=== PATIENT | female | born 1955 | race American Indian/Alaskan Native ===

== ENCOUNTER 2017-04-05 03:30 | Emergency (ER) | payer MEDICARE ==
[2017-04-05 03:31] VITALS: BMI 28.3
[2017-04-05] MEDS ORDERED: HYDROmorphone 0.5 mg/0.5 ml ISec SC STA ×2 (03:53→05:10)
--- NOTE | 2017-04-05 04:03 | ED PDOC ---
Arrival/HPI - General Chief Complaint: Back Pain Time Seen by Provider: 04/05/17 03:41 Historian: Patient - History of Present Illness Narrative History of Present Illness (Text): 04/05/17 03:58 A 62 year old female, whose past medical history includes chronic vertebral disk disease, knee surgery , chronic pain syndrome, presents to [facility] emergency department with a complaint of lower back pain. The patient states pain radiates down left leg. Patient states has a history of sciatica pain. Patient is on chronic pain medication at home (Oxycodone and Morphine). She is followed by a pain specialist. Patient states that she recently had her dosage decreased which she feel contributes to her worsening pain. The patient denies any history of trauma, leg weakness, changes in bowel/urinary habits, patient ambulates without difficulty. PMD: Dr. Salgado Time/Duration: Other (Today) Symptom Onset: Sudden Symptom Course: Unchanged Activities at Onset: Rest, Light Context: Home Past Medical History - Provider Review Nursing Documentation Reviewed: Yes - Past History Past History: Non-Contributing - Tetanus Immunization Tetanus Immunization: Unknown - Reproductive Menopause: Yes - Cardiac Hx Hypertension: Yes - Pulmonary Hx Respiratory Disorders: No - Neurological Hx Neurological Disorder: No - HEENT Hx HEENT Disorder: No - Renal Hx Renal Disorder: No - Endocrine/Metabolic Hx Diabetes Mellitus Type 2: Yes - Hematological/Oncological Hx Blood Disorders: No - Integumentary Hx Dermatological Disorder: No - Musculoskeletal/Rheumatological Hx Back Pain: Yes Hx Falls: No 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 - Gastrointestinal Hx Diverticulitis: Yes - Genitourinary/Gynecological Hx Genitourinary Disorders: No - Psychiatric Hx Depression: Yes Hx Emotional Abuse: No Hx Physical Abuse: No Hx Substance Use: No - Surgical History Hx Cholecystectomy: Yes Hx Joint Replacement: Yes (l knee/back) Hx Orthopedic Surgery: Yes Other/Comment: 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/alisa carpal tunnel - Anesthesia Hx Anesthesia: Yes Hx Anesthesia Reactions: No Hx Malignant Hyperthermia: No - Suicidal Assessment Feels Threatened In Home Enviroment: No Family/Social History - Physician Review Nursing Documentation Reviewed: Yes Family/Social History: No Known Family HX Smoking Status: Current Some Days Smoker Hx Alcohol Use: No Hx Substance Use: No Hx Substance Use Treatment: No Allergies/Home Meds Allergies/Adverse Reactions: Allergies erythromycin lactobionate [From Erythrocin] Allergy (Verified 04/05/17 03:49) RASH Penicillins Allergy (Verified 04/05/17 03:49) RASH Home Medications: Home Meds Medication Instructions Recorded Confirmed Cyclobenzaprine HCl [Flexeril] 10 mg PO BID 04/01/14 11/07/14 Ezetimibe [Zetia] 10 mg PO DAILY 04/01/14 11/07/14 Hydrochlorothiazide/Valsarta 1 tab PO DAILY 04/01/14 11/07/14 [Diovan Hct 25 mg-320 mg] Oxycodone HCl/Acetaminophen 30 mg PO Q4 04/01/14 11/07/14 [Roxicet 325 mg-5 mg] Potassium Chloride [K-Dur 20] 20 meq PO DAILY 04/01/14 11/07/14 Zolpidem Tartrate [Ambien] 10 mg PO HS 04/01/14 11/07/14 diltiaZEM [Cardizem] 360 mg PO DAILY 04/01/14 11/07/14 Morphine [MS Contin] 60 mg PO QID PRN 11/07/14 11/07/14 Review of Systems - Physician Review All systems were reviewed & negative as marked: Yes - Review of Systems Gastrointestinal: absent: Stool Changes Genitourinary Female: absent: Urine Output Changes Musculoskeletal: Back Pain (Lower back pain), Other (No leg weakness. ) Physical Exam Vital Signs Reviewed: Yes Vital Signs Temp Pulse Resp BP Pulse Ox 04/05/17 03:50 98.0 F 100 H 18 144/90 98 Temperature: Afebrile Blood Pressure: Normal Pulse: Tachycardic Respiratory Rate: Normal Appearance: Positive for: Well-Appearing, Non-Toxic, Comfortable Pain Distress: None Mental Status: Positive for: Alert and Oriented X 3 - Systems Exam Head: Present: Atraumatic, Normocephalic Pupils: Present: PERRL Extroacular Muscles: Present: EOMI Conjunctiva: Present: Normal Mouth: Present: Moist Mucous Membranes Neck: Present: Normal Range of Motion Respiratory/Chest: Present: Clear to Auscultation, Good Air Exchange. No: Respiratory Distress, Accessory Muscle Use Cardiovascular: Present: Regular Rate and Rhythm, Normal S1, S2. No: Murmurs Abdomen: Present: Normal Bowel Sounds. No: Tenderness, Distention, Peritoneal Signs Back: Present: Normal Inspection, Pain with Leg Raise (Slight discomfort with left leg raise. ). No: Midline Tenderness, Paraspinal Tenderness Upper Extremity: Present: Normal Inspection. No: Cyanosis, Edema Lower Extremity: Present: Normal Inspection, Neurovascularly Intact. No: Edema Neurological: Present: GCS=15, CN II-XII Intact, Speech Normal, Motor Func Grossly Intact, Normal Sensory Function Skin: Present: Warm, Dry, Normal Color. No: Rashes Psychiatric: Present: Alert, Oriented x 3, Normal Insight, Normal Concentration Medical Decision Making ED Course and Treatment: 04/05/17 04:05 Impression: A 62 year old female presents to the emergency department complaining of lower back pain. Plan: -- Dilaudid -- Reassess and disposition Progress Notes: - Medication Orders Current Medication Orders: Discontinued Medications Hydromorphone HCl (Dilaudid) 2 mg SC STAT STA Stop: 04/05/17 03:54 Last Admin: 04/05/17 04:11 Dose: 2 mg MAR Pain Assessment Document 04/05/17 04:11 IT (Rec: 04/05/17 04:12 IT [id number]) Pain Reassessment Is this a pain reassessment? No Sleep Is patient sleeping during reassessment? No Presence of Pain Presence of Pain Yes Pain Scale Used Pain Scale Used Numeric Location Left, Right or Bilateral Bilateral Upper or Lower Lower Pain Location Body Site Back Subcutaneous Administrations Document 04/05/17 04:11 IT (Rec: 04/05/17 04:12 IT [id number]) Injection Site MAR Injection Site Left Arm Charges for Administration # of Subcutaneous Administrations 1 Hydromorphone HCl (Dilaudid) 2 mg SC STAT STA Stop: 04/05/17 05:11 Last Admin: 04/05/17 05:20 Dose: 2 mg MAR Pain Assessment Document 04/05/17 05:20 IT (Rec: 04/05/17 05:20 IT [id number]) Pain Reassessment Is this a pain reassessment? No Sleep Is patient sleeping during reassessment? No Presence of Pain Presence of Pain Yes Subcutaneous Administrations Document 04/05/17 05:20 IT (Rec: 04/05/17 05:20 IT [id number]) Charges for Administration # of Subcutaneous Administrations 1 - Scribe Statement The provider has reviewed the documentation as recorded by the Scribe Jenny Law Provider Scribe Attestation: All medical record entries made by the Scribe were at my direction and personally dictated by me. I have reviewed the chart and agree that the record accurately reflects my personal performance of the history, physical exam, medical decision making, and the department course for this patient. I have also personally directed, reviewed, and agree with the discharge instructions and disposition. Disposition/Present on Arrival - Present on Arrival Any Indicators Present on Arrival: No History of DVT/PE: No History of Uncontrolled Diabetes: No Urinary Catheter: No History of Decub. Ulcer: No History Surgical Site Infection Following: None - Disposition Have Diagnosis and Disposition been Completed?: Yes Diagnosis: Sciatica, Back pain Disposition: HOME/ ROUTINE Disposition Time: 05:34 Patient Plan: Discharge Condition: GOOD Discharge Instructions (ExitCare): Sciatica (DC), Low Back Pain in Adults Additional Instructions: Continue your current meds/follow up with your doctor this week Forms: [employer] (Bots[place]an)
[2017-04-05 05:44] VITALS: BP 158/96; PULSE 93; RESP 17; TEMP 98.2; O2SAT 100
== END 2017-04-05 05:44 | disposition home or self-care (01) ==
LOC: ED 03:30
DX: M54.40 Lumbago with sciatica, unspecified side (principal)
CPT/HCPCS: 96372; 99283; J1170

== ENCOUNTER 2017-04-12 10:37 | Inpatient (IN) | payer MEDICARE ==
[2017-04-12 11:00] VITALS: BMI 25.6
[2017-04-12] MEDS ORDERED: Sodium Chloride 0.9% 1,000 ML IV STA ×3 (11:28→15:09)
[2017-04-12] MEDS ORDERED: Morphine 4 mg/ml ISec IVP STA (11:32)
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
[2017-04-12 12:09] LABS: BASO # 0.01 K/mm3 (0.0-2.0); GRAN # 18.47 (1.4-6.5); GRAN % 85.9 % (50.0-68.0); HEMOGLOBIN 14.7 g/dL (12.0-16.0); LYMPH # 2.1 (1.2-3.4); LYMPH % 9.9 % (22.0-35.0); MEAN CELL VOLUME 83.8 fl (80.0-105.0); MEAN CORPUSCULAR HEMOGLOBIN 28.3 pg (25.0-35.0); MEAN CORPUSCULAR HGB CONC 33.7 g/dl (31.0-37.0); MEAN PLATELET VOLUME 9.4 fl (7.0-11.0); MONO # 0.9 (0.1-0.6); MONO % 4.2 % (1.0-6.0); RBC 5.2 10^6/uL (3.5-6.1); RED CELL DISTRIBUTION WIDTH 14.4 % (11.5-14.5); VENOUS BLOOD GAS BASE EXCESS -10.7 mmol/L (0.0-2.0); VENOUS BLOOD GAS PO2 46 mm/Hg (30-55); WHITE BLOOD COUNT 21.5 10^3/ul (4.5-11.0)
[2017-04-12 12:14] LABS: VENOUS BLOOD PH 7.14 (7.32-7.43)
[2017-04-12 12:19] LABS: PROTHROMBIN TIME 11.8 SECONDS (9.4-12.5)
[2017-04-12 12:20] LABS: ACETAMINOPHEN < 10.0 ug/ml (10.0-20.0); ALB/GLOB RATIO 1.4 (1.1-1.8); INR 1.03 (0.93-1.08); PARTIAL THROMBOPLASTIN TIME 23.8 Seconds (25.1-36.5); SALICYLATE < 1 mg/dL (2.0-20.0)
--- NOTE | 2017-04-12 12:20 | RAD ---
PROCEDURE: CHEST RADIOGRAPH, 1 VIEW HISTORY: AMS, found outside COMPARISON: 09/10/2011. FINDINGS: LUNGS: The lungs are clear. PLEURA: No pneumothorax or pleural fluid seen. CARDIOVASCULAR: The heart is normal in size. Atherosclerotic aortic arch calcifications are present. OSSEOUS STRUCTURES: No significant abnormalities. VISUALIZED UPPER ABDOMEN: Normal. OTHER FINDINGS: None. IMPRESSION: No active pulmonary disease.
[2017-04-12 12:31] LABS: TROPONIN I 0.02 ng/mL
--- NOTE | 2017-04-12 12:31 | CT ---
PROCEDURE: CT HEAD WITHOUT CONTRAST. HISTORY: AMS, found outside, core temp 91 COMPARISON: None available. TECHNIQUE: Axial computed tomography images were obtained through the head/brain without intravenous contrast. Radiation dose: Total exam DLP = 890 mGy-cm. This CT exam was performed using one or more of the following dose reduction techniques: Automated exposure control, adjustment of the mA and/or kV according to patient size, and/or use of iterative reconstruction technique. FINDINGS: HEMORRHAGE: No intracranial hemorrhage. BRAIN: No mass effect or edema. No atrophy or chronic microvascular ischemic changes. VENTRICLES: Unremarkable. No hydrocephalus. CALVARIUM: Unremarkable. PARANASAL SINUSES: Unremarkable as visualized. No significant inflammatory changes. MASTOID AIR CELLS: Unremarkable as visualized. No inflammatory changes. OTHER FINDINGS: None. IMPRESSION: No acute findings
[2017-04-12] MEDS ORDERED: Cefepime IV 2 gm in NS 2 GM/100 ML BAG IVPB STA (12:59)
[2017-04-12 13:21] LABS: CK-MB 63.9 ng/mL (0.0-3.6)
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
[2017-04-12] MEDS ORDERED: Aztreonam 2 Gm in NS 100mL 100 ML IVPB STA (15:02)
[2017-04-12] MEDS ORDERED: Vancomycin 1gm in NS 250ml 1 GM/250 ML BAG IVPB STA (15:02)
[2017-04-12 15:03] LABS: MAGNESIUM 3.7 mg/dL (1.7-2.2)
[2017-04-12] MEDS ORDERED: Sodium Chloride 0.9% 1,000 ML IV SCH (15:15)
[2017-04-12 15:43] LABS: VENOUS BLOOD GAS BASE EXCESS -10.6 mmol/L (0.0-2.0); VENOUS BLOOD GAS PO2 44 mm/Hg (30-55)
[2017-04-12 15:46] LABS: VENOUS BLOOD PH 7.15 (7.32-7.43)
[2017-04-12] MEDS ORDERED: Influenza Vaccine 60 mcg/0.5 mL SYR (4YR UP) IM ONE (17:05)
[2017-04-12] MEDS ORDERED: Pneumococcal 23-Valent Vaccine IM ONE (17:05)
[2017-04-12] MEDS ORDERED: Insulin Lispro (humaLOG) MEDIUM Coverage SC SCH (18:00)
[2017-04-12 18:15] LABS: URINE APPEARANCE TURBID (CLEAR); URINE BILIRUBIN NEGATIVE (NEGATIVE); URINE BLOOD LARGE (NEGATIVE); URINE COLOR YELLOW (YELLOW); URINE GLUCOSE (UA) NEGATIVE (NEGATIVE); URINE LEUKOCYTE ESTERASE NEGATIVE Leu/uL (NEGATIVE); URINE NITRATE NEGATIVE (NEGATIVE); URINE PROTEIN 30 mg/dL (<30 mg/dL); URINE UROBILINOGEN 0.2 E.U./dL (<1 E.U./dL)
[2017-04-12 18:22] LABS: URINE BACTERIA FEW (NEG); URINE WBC 0 - 2 /hpf (0-6)
[2017-04-12 18:29] LABS: PHENCYCLIDINE, UR NEGATIVE (NEGATIVE)
[2017-04-12 18:33] LABS: BARBITURATES, UR NEGATIVE (NEGATIVE); BENZODIAZEPINES, UR POSITIVE (NEGATIVE); OPIATES, UR POSITIVE (NEGATIVE)
--- NOTE | 2017-04-12 18:41 | PCM.SEPTIC ---
Sepsis Progress Note - Reassessment Type Date of Evaluation: 04/12/17 Time of Evaluation: 18:40 Reassessment Type: Non-invasive reassessment - Non Invasive Reassessment Were the most recent vital sign reviewed: Yes Vital Sign (Latest): Temp Pulse Resp BP Pulse Ox 98.3 F 91 H 8 L 105/56 L 92 L 04/12/17 16:29 04/12/17 18:30 04/12/17 18:30 04/12/17 18:04 04/12/17 18:30 Cardiovascular: Yes: Regular Rate, Rhythm. No: Bradycardia, Irregularly Irregular Respiratory: Yes: Normal Breath Sounds. No: Decreased Breath Sounds, Accessory Muscle Use Capillary Refill: Normal (Less than 2 sec) Pulses: Normal Radial, Normal Dorsalis Pedis, Normal Posterior Tibialis Skin: Dry, Pale Was a central venous oxygen measurement obtained within 6 hours after the presentation of septic shock: No Was a bedside cardiovascular ultrasound performed within 6 hours after the presentation of septic shock: No Was a passive leg raise performed or was a fluid challenge performed within 6 hrs of the initial fluid bolus: No
[2017-04-12] MEDS: Albuterol-Ipratrop 3 mg / 0.5 (3 ml) UD IH SCH (19:45)
[2017-04-12] MEDS ORDERED: Insulin Reg-MEDIUM-Coverage SC SCH (22:00)
--- NOTE | 2017-04-12 22:44 | US ---
EXAM: US Abdomen Complete CLINICAL HISTORY: 62 years old, female; Abnormal findings; Abnormal lab test; Elevated liver enzymes; Additional info: Elevated lfts TECHNIQUE: Real-time ultrasound of the abdomen (complete) with image documentation. COMPARISON: No relevant prior studies available. FINDINGS: Liver: Liver measures 13 CM longitudinally. Increased echogenicity consistent with hepatic steatosis. No intrahepatic bile duct dilation. Gallbladder: Gallbladder is surgically absent. Common bile duct: Common bile duct measures 2.3 mm. No stones. No dilation. Pancreas: Pancreas is not well-visualized. Kidneys: Right kidney measures 9.3 CM longitudinally. No hydronephrosis. No stone. Left kidney not visualized. Spleen: Spleen measures 7.9 CM longitudinally. Aorta: IVC and aorta are unremarkable as visualized. Inferior vena cava: See above. IMPRESSION: 1. Limited study. 2. Gallbladder appears to be surgically absent. Correlate with surgical history. 3. Hepatic steatosis. 4. Remainder of findings as above.
[2017-04-12] MEDS: Insulin Lispro (humaLOG) MEDIUM Coverage SC SCH (22:57)
[2017-04-13] MEDS: Albuterol-Ipratrop 3 mg / 0.5 (3 ml) UD IH SCH ×4 (01:51→20:44)
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
[2017-04-13 06:25] LABS: INR 1.09 (0.93-1.08); PROTHROMBIN TIME 12.6 SECONDS (9.4-12.5)
[2017-04-13] MEDS ORDERED: Pantoprazole 40 mg EC Tab PO SCH ×2 (06:30→10:00)
[2017-04-13 06:42] LABS: FREE T4 1.48 ng/dL (0.78-2.19)
[2017-04-13 06:55] LABS: T3 1.03 ng/mL (0.97-1.69)
[2017-04-13 07:12] LABS: ALB/GLOB RATIO 1.1 (1.1-1.8); ALBUMIN 3.1 g/dL (3.0-4.8); CALCIUM 8.4 mg/dL (8.4-10.5)
[2017-04-13] MEDS: Insulin Lispro (humaLOG) MEDIUM Coverage SC SCH ×4 (08:13→22:21)
[2017-04-13 08:27] LABS: CK MB% 0.7 % (2.5-3.0); CK-MB 58.8 ng/mL (0.0-3.6)
[2017-04-13 08:41] LABS: MEAN CELL VOLUME 82.8 fl (80.0-105.0); MEAN CORPUSCULAR HEMOGLOBIN 26.9 pg (25.0-35.0); MEAN CORPUSCULAR HGB CONC 32.5 g/dl (31.0-37.0); RBC 3.9 10^6/uL (3.5-6.1); RED CELL DISTRIBUTION WIDTH 14.7 % (11.5-14.5); WHITE BLOOD COUNT 9.4 10^3/ul (4.5-11.0)
[2017-04-13 08:45] LABS: HEMOGLOBIN 10.5 g/dL (12.0-16.0)
--- NOTE | 2017-04-13 09:10 | PN ---
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 No fever, chills, nausea or vomiting. No abdominal pain. No diarrhea. The patient is moving all extremities and states that she is feeling her usual. She continues to be on sodium bicarbonate drip. PHYSICAL EXAMINATION VITAL SIGNS: Her temperature is 98.2, pulse is 90, respirations are 10, BP is 87/40. O2 saturation is 98 on room air. SKIN: Warm and dry. HEENT: Head is atraumatic, normocephalic. Eyes reactive to light. Ears, nose and throat seemed to be within normal limits. NECK: Supple. No JVD. No thyroid enlargement or lymph nodes. HEART: Has irregular rate and rhythm. Normal S1, S2. LUNGS: Reveal good breath sounds bilaterally. ABDOMEN: Soft, nontender. Normal bowel sounds. No organomegaly noted. GENITALIA: Deferred. RECTAL: Deferred. MUSCULOSKELETAL: No joint deformities. EXTREMITIES: Reveal trace lower extremity edema. NEUROLOGIC: She seemed to be grossly intact. DATA: As far as her laboratories, the patient's sodium is 145, potassium 3.7, chloride 112, CO2 of 26, BUN of 30, creatinine of 1.4 and a glucose of 115 and her LFTs are mildly elevated. The patient's CBC is pending. IMPRESSION: As far as my impression, this patient initially presented with altered mental status that has cleared. She had hypothermia as well as a leukocytosis and sepsis was being ruled out. The patient had acute rhabdomyolysis and acute kidney insufficiency. She has a history of hypertension as well as chronic pain and attention deficit disorder. PLAN: As far as our plan, we will continue to monitor closely. The patient is on empiric antibiotics and we will follow her laboratories and correct as needed. She is getting bronchodilators of DuoNeb and Protonix as well as Zofran p.r.n. We will continue to follow closely and treat aggressively along with the other consultants and the primary care doctor. Jimy Chavez MD
--- NOTE | 2017-04-13 09:37 | CARD ---
APPROVED REPORT EKG Measurement Heart [id number] <Conclusion> Normal sinus rhythm Possible Left atrial enlargement Nonspecific T wave abnormality Prolonged QT Abnormal ECG
[2017-04-13 10:36] LABS: MAGNESIUM 2.6 mg/dL (1.7-2.2)
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
[2017-04-13 12:09] LABS: URINE BILIRUBIN NEGATIVE (NEGATIVE); URINE BLOOD LARGE (NEGATIVE); URINE GLUCOSE (UA) NEGATIVE (NEGATIVE); URINE LEUKOCYTE ESTERASE NEGATIVE Leu/uL (NEGATIVE); URINE NITRATE NEGATIVE (NEGATIVE); URINE PROTEIN 30 mg/dL (<30 mg/dL); URINE UROBILINOGEN 0.2 E.U./dL (<1 E.U./dL)
[2017-04-13 12:10] LABS: URINE APPEARANCE SL CLOUDY (CLEAR); URINE COLOR YELLOW (YELLOW)
[2017-04-13 12:37] LABS: URINE RBC TNTC /hpf (0-2)
[2017-04-13 12:38] LABS: URINE BACTERIA FEW (NEG); URINE EPITHELIAL CELLS 0 - 2 /hpf (0-5)
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
[2017-04-13 13:57] LABS: CALCIUM 8.5 mg/dL (8.4-10.5)
[2017-04-13 14:48] LABS: % IRON SATURATION 54 % (20-55); IRON 144 ug/dL (45-180); TOTAL IRON BINDING CAPACITY 266 ug/dL (265-497)
--- NOTE | 2017-04-13 14:49 | CT ---
PROCEDURE: CT Cervical Spine without contrast HISTORY: Rule out fracture, disc herniation COMPARISON: None available. TECHNIQUE: Axial computed tomography images were obtained of the cervical spine without the use of intravenous contrast. Coronal and sagittal reformatted images were created and reviewed. Radiation dose: Total exam DLP = 640 mGy-cm. This CT exam was performed using one or more of the following dose reduction techniques: Automated exposure control, adjustment of the mA and/or kV according to patient size, and/or use of iterative reconstruction technique. FINDINGS: VERTEBRAE: No fracture. Normal alignment. No destructive bony lesion. DISCS/SPINAL CANAL/NEURAL FORAMINA: Mild foraminal stenosis at C4-5. Anterior osteophytes are seen at C4-5 and C5-6 and C6-7. There is mild reversal of the normal lordotic curvature PARASPINAL SOFT TISSUES: Unremarkable. OTHER FINDINGS: None. IMPRESSION: Multilevel disc degeneration. Mild reversal of the normal lordotic curvature. No acute findings
[2017-04-13 15:30] LABS: CK MB% 0.5 % (2.5-3.0); CK-MB 33.6 ng/mL (0.0-3.6)
[2017-04-13 16:23] LABS: ARTERIAL BLOOD GAS HCO3 29.9 mmol/L (21-28); ARTERIAL BLOOD GAS HEMOGLOBIN 10.1 g/dL (11.7-17.4); ARTERIAL BLOOD GAS O2 CAPACITY 13.7 mL/dl (16-24); ARTERIAL BLOOD GAS O2 CONTENT 13.2 ML/dl (15-23); ARTERIAL BLOOD GAS O2 SAT 96.1 % (95-98); ARTERIAL BLOOD GAS PCO2 44 mm/Hg (35-45); ARTERIAL BLOOD GAS PH 7.44 (7.35-7.45); ARTERIAL BLOOD GAS TCO2 31.3 mmol.L (22-28)
[2017-04-13] MEDS: Oxycodone/Acetaminophen 5/325 mg Tab PO PRN ×2 (16:29→22:57)
[2017-04-13 16:43] LABS: FERRITIN 38.1 ng/mL
--- NOTE | 2017-04-13 17:02 | PN ---
DATE: SUBJECTIVE: The patient is 62 years old, seen and examined, able to communicate, but somewhat confused at times. PHYSICAL EXAMINATION: VITAL SIGNS: She is afebrile, pulse 87, respirations 20, blood pressure 90/52. LUNGS: Bilateral good airflow. No rhonchi or crackle. HEART: S1 and S2 audible. ABDOMEN: Soft, nontender. No rebound. No guarding. NEUROLOGIC: She is awake and alert, able to communicate. Complaining of intractable pain in the lower back and the neck area. LABORATORY DATA: WBC is 9.4, hemoglobin 10.5, hematocrit 32.3, platelet 274. Chemistry: Sodium 144, potassium 3.6, chloride 111, CO2 of 31, BUN 24, creatinine 1.2, blood sugar of 141. Blood cultures are negative. ASSESSMENT: 1. Status post hypothermia. 2. Rhabdomyolysis, improving. 3. History of schizophrenia. 4. Dehydration, improving. 5. History of hypertension. PLAN: She is currently on IV fluid. She is on nebulizer treatment. She is on Protonix. The leukocytosis has resolved. We will request for physical therapy. CT scan of the neck was done that shows multilevel degenerative disk disease and reversal of normal lordosis. We will start her on Tylenol as needed and Percocet for moderate to severe pain. Sloan Lebron MD
[2017-04-13 18:17] VITALS: O2SAT 94
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
[2017-04-14 00:09] VITALS: BP 103/61; RESP 22; TEMP 98.1
[2017-04-14 02:41] VITALS: PULSE 76
--- NOTE | 2017-04-14 03:28 | CP.PCM.PN ---
Subjective - Date & Time of Evaluation Date of Evaluation: 04/14/17 Time of Evaluation: 03:23 - Subjective Subjective: pt wants to sign against medical advise pt was admitted for pneumonia..was asking fo more pain meds which was offered to her but still she wants to leave. Objective - Vital Signs/Intake and Output Vital Signs (last 24 hours): Temp Pulse Resp BP Pulse Ox 98.1 F 76 22 103/61 94 L 04/14/17 00:01 04/14/17 02:00 04/14/17 00:01 04/14/17 00:01 04/13/17 18:10 Intake and Output: 04/13/17 04/14/17 18:59 06:59 Intake Total 1910 Output Total 600 Balance 1310 - Medications Medications: Current Medications Acetaminophen (Tylenol 325mg Tab) 650 mg PO Q6H PRN PRN Reason: Fever >100.4 F Acetaminophen (Tylenol 325mg Tab) 650 mg PO Q6H PRN PRN Reason: Fever >100.4 F Albuterol/Ipratropium (Duoneb 3 Mg/0.5 Mg (3 Ml) Ud) 3 ml IH [id number] [facility] Last Admin: 04/13/17 20:44 Dose: Not Given Meropenem 250 mg/ Sodium (Chloride) 50 mls @ 100 mls/hr IVPB 0800,2000 [facility] PRN Reason: Protocol Last Admin: 04/13/17 21:02 Dose: 100 mls/hr Insulin Human Lispro (Humalog Med) 0 units SC ACHS [facility] PRN Reason: Protocol Last Admin: 04/13/17 22:21 Dose: Not Given Ondansetron HCl (Zofran Inj) 4 mg IVP Q4H PRN PRN Reason: Nausea/Vomiting Oxycodone/Acetaminophen (Percocet 5/325 Mg Tab) 1 tab PO Q6H PRN PRN Reason: Pain, moderate (4-7) Stop: 04/16/17 15:16 Last Admin: 04/13/17 22:57 Dose: 1 tab Pantoprazole Sodium (Protonix Ec Tab) 40 mg PO DAILY [facility] Last Admin: 04/13/17 10:45 Dose: 40 mg - Labs Labs: 04/13/17 08:00 04/13/17 13:10 PT 12.6 SECONDS (9.4-12.5) H 04/13/17 05:30 INR 1.09 (0.93-1.08) H 04/13/17 05:30 APTT 23.8 Seconds (25.1-36.5) L 04/12/17 11:50 - Constitutional Appears: No Acute Distress - Head Exam Head Exam: NORMOCEPHALIC - Eye Exam Eye Exam: Normal appearance - ENT Exam ENT Exam: Mucous Membranes Moist - Neck Exam Neck Exam: Full ROM - Respiratory Exam Respiratory Exam: NORMAL BREATHING PATTERN - Cardiovascular Exam Cardiovascular Exam: REGULAR RHYTHM, RRR, +S1, +S2 - GI/Abdominal Exam GI & Abdominal Exam: Normal Bowel Sounds - Neurological Exam Neurological Exam: Alert, Awake, CN II-XII Intact, Oriented x3 - Skin Skin Exam: Dry, Normal Color, Warm Assessment and Plan - Assessment and Plan (Free Text) Assessment: ama. pneumonia. Plan: risk of infection sepsis explained to pt . pmd aware.
[2017-04-14 08:28] LABS: HEPATITIS B SURFACE AG Negative (NEGATIVE)
[2017-04-14 08:34] LABS: HEPATITIS A IGM NEGATIVE (NEGATIVE); HEPATITIS B CORE AB NEGATIVE (NEGATIVE)
[2017-04-14 08:45] LABS: HEPATITIS C ANTIBODY NEGATIVE (NEGATIVE)
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
== END 2017-04-14 03:30 | disposition left against medical advice (07) | DRG 923 ==
LOC: ED 10:37 → ERH 13:13 → ICU 15:33 → 2RNO 04-13 18:48
PROVIDERS: ADMIT Internal Medicine; ATTEND Internal Medicine
DX: T68.XXXA Hypothermia, initial encounter (principal); N17.9 Acute kidney failure, unspecified; M62.82 Rhabdomyolysis; E87.0 Hyperosmolality and hypernatremia; E87.2 Acidosis; E86.0 Dehydration; E83.39 Other disorders of phosphorus metabolism; E11.9 Type 2 diabetes mellitus without complications; E78.5 Hyperlipidemia, unspecified; D64.9 Anemia, unspecified; I10 Essential (primary) hypertension; M50.30 Other cervical disc degeneration, unspecified cervical region; M51.26 Other intervertebral disc displacement, lumbar region; F98.8 Other specified behavioral and emotional disorders with onset usually occurring in childhood and adolescence; F17.210 Nicotine dependence, cigarettes, uncomplicated; G89.29 Other chronic pain; Z96.652 Presence of left artificial knee joint; X31.XXXA Exposure to excessive natural cold, initial encounter; Z79.84 Long term (current) use of oral hypoglycemic drugs; Z88.0 Allergy status to penicillin; Z79.891 Long term (current) use of opiate analgesic; Z86.59 Personal history of other mental and behavioral disorders